=== PATIENT | male | born 1935 | race Caucasian/White ===

== ENCOUNTER → 2018-07-01 16:03 | Outpatient (CLI) | payer MEDICARE, SELFPAY ==
--- NOTE | 2018-07-01 | IMM_PTH ---
PATIENT: HAIM CRABTREE LOC: [facility] U#:[id number] AGE/SX: 89/M ROOM: RE07/01/[address]: Dr. Bassam Goldman MD : 1935 BED: DIS: SPEC #: [id number] RECD: 07/03/18 11:48 STATUS: FARIHA REQ #: [id number] CHARLIE: 07/01/18 00:[address]: Bassam Goldman DEPT: IMMUNOHISTOCHEMISTRY RECD BY: Sunita Buckner Tissues: Neck, NOS Procedures: NAPSIN A (add) CK14 (add) CK20 (add) CK5-6 (add) CK7 (add) CK8 (add) EGE (add) KI-67 (add) P53 (add) TTF1 (add) Vimentin (add) Pankeratin (initial) P40 (add) PSAP (add) S-100 (add) PHYSICIAN & INSTITUTION [place] [id number] SPECIMEN INFORMATION: Tissue Source: Left neck mass Clinical Info: Left parotid mass Specimen Number: [id number] CPT code: 55536, 99369 x14 METHODOLOGY: Deparaffinized sections of prefer/formalin-fixed tissue or PAP/DQ stained slides are incubated with monoclonal/polyclonal antibodies/oligonucleotide probes. Localization is made via biotin free immunoperoxidase method. Appropriate controls are performed and reacted as expected. Results on target cell population are indicated in the following table: RESULTS: ANTIBODY / CLONE RESULT AE1-3 (AE1/AE3/PCK26) positive, focal CK7 (OV-TL12/30) negative CK8 (90tpvzL35) negative CK20 (KS20.8) negative P40 (BC28) positive Vimentin (V9) negative S-100 (4C4.9) negative TTF-1 (8G7G3/1) negative Napsin A (Rabbit Polyclonal) negative PSAP (PASE/4LJ) negative CK5-6 (D5 & 1684) positive CK14 (LL002) positive Ki-67 (30-9) negative GEE (E29) positive P53 (DO-7) negative These tests were developed and their performance characteristics determined by [facility]. They may not have been cleared or approved by the U.S. Food and Drug Administration. The FDA has determined that such clearance or approval is not necessary. INTERPRETATION: Left neck mass, fine needle aspiration: Consistent with metastatic squamous cell carcinoma. AM:stephany 07/04/18 Case has been reviewed in consultation with Dr. Magana who concurs with the above diagnosis. IDC:SJ
--- NOTE | 2018-07-01 14:17 | FLU_PTH ---
PATIENT: HAIM CRABTREE LOC: [facility] U#:[id number] AGE/SX: 89/M ROOM: RE07/01/[address]: Dr. Bassam Goldman MD : 1935 BED: DIS: SPEC #: [id number] RECD: 07/01/18 15:32 STATUS: FARIHA YEFRI #: [id number] CHARLIE: 07/01/18 14:[address]: Bassam Goldman DEPT: CYTOLOGY RECD BY: Luis Menchaca Tissues: Parotid gland, NOS Procedures: Special Stain Group II Surgery Specimen Level IV Cytospin Fluid HEADER OPERATION: Not noted PRE-OP DIAGNOSIS: Left parotid mass TISSUE SUBMITTED: Left side of neck, fluid for cytology DIAGNOSIS CYTOLOGY Left neck mass, fine needle aspiration (cytospin and cell block): Scant degenerating atypical squamous cells consistent with metastatic squamous cell carcinoma. Abundant acute inflammatory cells. AM:stephany 07/03/18 COMMENT Immunohistochemistry ([id number]) supports the above diagnosis. Clinical correlation is suggested. Case has been reviewed in consultation with Dr. Magana who concurs with the above diagnosis. IDC:SJ CYTOLOGY STUDY Slides are reviewed. CYTOLOGY GROSS Received is 40 ml of red cloudy fluid labeled with the patient's name and and designated per the requisition as left side of neck/parotid mass. Submitted for cytology preparation including cell block. 07/02/18 TC:? CPT: 10994, 58780
== END ==
PROVIDERS: Referring Provider Otolaryngology; Visit Provider Otolaryngology
DX: R22.1 Localized swelling, mass and lump, neck (principal)
CPT/HCPCS: 88108; 88305; 88313; 88341; 88342

== ENCOUNTER 2018-07-12 07:29 | Observation (INO) | payer MEDICARE, SELFPAY ==
[2018-07-12] VITALS (11 sets, daily range): BP systolic 120–163; BP diastolic 55–73; PULSE 60–65; RESP 14–16; TEMP 36.4–37.4; O2SAT 92–98; BMI 23.1
--- NOTE | 2018-07-12 | LES_PTH ---
PATIENT: HAIM CRABTREE LOC: [facility] U#:[id number] AGE/SX: 82/M ROOM: [facility] RE07/12/[address]: Dr. Bassam Goldman MD : 1935 BED: 1 DIS: 07/13/2018 SPEC #: [id number] RECD: 07/12/18 12:34 STATUS: FARIHA YEFRI #: [id number] CHARLIE: 07/12/18 00:[address]: Bassam Goldman DEPT: SURGICAL PATHOLOGY RECD BY: Sunita Buckner ENTERED: 07/12/18 13:24 SP TYPE: Lesion OTHR DR: Out of Town Doctor Tissues: A - Skin of external ear, NOS B - Parotid gland, NOS C - Parotid gland, NOS D - Neck, NOS Procedures: Frozen Section (charge) Frozen Section Add'l ([facility]) Surgery Specimen Level IV Surgery Specimen Level V HEADER OPERATION: Parotidectomy PRE-OP DIAGNOSIS: Malignant neoplasm of parotid gland TISSUE SUBMITTED: A - Lesion left ear, sent for frozen at 1234, B - Left parotid gland sent for frozen at 1422, long suture - superior, skin patch - lateral, C - Deep lobe left parotid gland sent for permanent, D - Cervical tissue sent for permanent FROZEN SECTION DIAGNOSIS A. Left ear lesion, biopsy: Basal cell carcinoma, completely excised. B. 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 Margins are very close to tumor. DEBBIE:stephany 07/12/18 MICROSCOPIC DIAGNOSIS A. Left ear lesion, excisional biopsy: Basal cell carcinoma, completely excised (0.9 cm in greatest dimension). See comment. B. Left parotid gland, parotidectomy: Consistent with metastatic poorly differentiated squamous cell carcinoma, completely excised (8?cm in greatest dimension). Extensive perineural invasion is noted. Four of four lymph nodes, negative for metastatic carcinoma. Major salivary gland tissue with focal chronic inflammation. Skin with focal actinic keratosis with mild to moderate atypia, hyperkeratosis and parakeratosis. See comment. C. Deep lobe left parotid gland, parotidectomy: Major salivary gland tissue, no pathologic diagnosis. Two out of two lymph nodes negative for metastatic carcinoma. D. Cervical tissue: Three out of three lymph nodes negative for metastatic carcinoma. DEBBIE:stephany 07/16/18 COMMENT A. The specimen also contains cartilage which is free of carcinoma. B. Most of the metastatic tumor is present in soft tissue adjacent to the major salivary gland tissue. The tumor has multinodular appearance and focally is suspicious for a lymph node that is replaced by tumor.. Few minute foci of the tumor are noted in the salivary gland tissue consistent with focal invasion of the adjacent salivary gland. Tumor involves skeletal muscle tissue and contains extensive necrosis. The tumor is 0.1 cm away from the closest (posterior) margin and 0.2 cm away from the next closest (lateral) margin of excision. Immunohistochemistry ([id number]) supports the above diagnosis. Reference is made to a previous specimen ([id number]) left neck mass, fine needle aspiration with diagnosis of scant degenerating atypical squamous cell consistent with metastatic squamous cell carcinoma. The patient has previous history of squamous cell carcinoma involving denominational region is noted. This case is discussed with Dr. Goldman on 07/16/18. Case has been reviewed in consultation with Dr. Magana who concurs with the above diagnosis. IDC:SJ MICROSCOPIC DESCRIPTION Slides are reviewed. GROSS DESCRIPTION A - Received fresh for frozen section diagnosis labeled with the patient's name is a specimen designated lesion left ear. The specimen consists of a wedge-shaped piece of al-white skin measuring 2 x 1.2 x 0.7 cm. The specimen is inked, serially sectioned and submitted entirely for frozen section diagnosis in three cassettes. Cassette 1 contains the enfaced peripheral margins. / DEBBIE:stephany 07/12/18 B - Received fresh for frozen section diagnosis labeled with the patient's name is a specimen designated left parotid gland. The specimen consists of an irregular piece of glandular tissue weighing 65 gm and measuring 9 x 5 x 4 cm. A piece of skin is noted measuring 5.5 x 1.5 cm. The specimen is oriented as follows: long stitch - superior and skin patch - lateral. The specimen is inked as follows: anterior - yellow, posterior - black, superior - blue, inferior - green, medial - red and lateral - orange. Serial sections reveal a tumor mass occupying almost the entire specimen measuring 8 x 5 x 4 cm. A smaller nodule is also noted at the inferior edge of the specimen measuring 1 cm in greatest dimension. Two frozen sections are done, one from the larger tumor, a second from the smaller nodule. Grossly, the tumor appears to be close to all margins of the specimen; however, it does not appear to be transected. Radio Officer sections are submitted in 17 cassettes as follows: 1 - frozen section, smaller nodule close to inferior margin of the specimen, 2 - tumor with closest margin, 3-12 - cash applications representative sections from superior to inferior margins (cassette 3 contains the most superior margin), 15-17 - contain the most inferior end of the specimen. Many of the tumor sections also contain the closest margin. / SJ: 07/15/18 C - Received in fixative is one container labeled with the patient's name and designated Deep lobe left parotid gland. The specimen consists of an irregular piece of glandular tissue weighing 3.8 gm and measuring 4 x 2.5 x 1 cm. Sections do not reveal any mass lesion. The entire specimen is submitted in three cassettes. / SJ: 07/15/18 D - Received in fixative is one container labeled with the patient's name and designated cervical tissue. The specimen consists of two pieces of yellow adipose tissue with the larger piece containing a possible nodule consistent with possible lymph node measuring 1 x 0.5 x 0.4 cm and 1 x 0.2 x 0.2 cm. The entire specimen is submitted in one cassette. / SJ: 07/15/18 TC:0 CPT: 67895 x2, 38520 x2, 00143 x2, 77598 x3
--- NOTE | 2018-07-12 | IMM_PTH ---
PATIENT: HAIM CRABTREE LOC: [facility] U#:[id number] AGE/SX: 82/M ROOM: [facility] RE07/12/[address]: Dr. Bassam Goldman MD : 1935 BED: 1 DIS: 07/13/2018 SPEC #: [id number] RECD: 07/16/18 11:45 STATUS: SOUT REQ #: [id number] CHARLIE: 07/12/18 00:[address]: Bassam Goldman DEPT: IMMUNOHISTOCHEMISTRY RECD BY: Sunita Buckner ENTERED: 07/16/18 11:46 SP TYPE: IMMUNO OTHR DR: Dr. Mathew Freedman MD [facility] Doctor Tissues: B - Parotid gland, NOS Procedures: CK20 (add) CK5-6 (add) CK7 (add) CK8 (add) P16 (add) P40 (add) CK7 (initial) PHYSICIAN & INSTITUTION [place] [id number] SPECIMEN INFORMATION: Tissue Source: B - Left parotid gland Clinical Info: Malignant neoplasm of parotid gland Specimen Number: [id number] B9 & B14 [facility] code: 79836, 51242 x11 METHODOLOGY: Deparaffinized sections of prefer/formalin-fixed tissue or PAP/DQ stained slides are incubated with monoclonal/polyclonal antibodies/oligonucleotide probes. Localization is made via biotin free immunoperoxidase method. Appropriate controls are performed and reacted as expected. Results on target cell population are indicated in the following table: RESULTS: ANTIBODY / CLONE RESULT Block B9 CK7 (OV-TL12/30) negative CK8 (69ogxoR44) negative CK20 (KS20.8) negative CK5-6 (D5 & 1684) positive P16 (E6H4) negative P40 (BC28) positive Block B14 CK7 (OV-TL12/30) negative CK8 (66qkfdO91) negative CK20 (KS20.8) negative CK5-6 (D5 & 1684) positive P16 (E6H4) negative P40 (BC28) positive These tests were developed and their performance characteristics determined by [facility]. They may not have been cleared or approved by the U.S. Food and Drug Administration. The FDA has determined that such clearance or approval is not necessary. INTERPRETATION: B. 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 AM:stephany 07/17/18
--- NOTE | 2018-07-12 07:43 | EKG12_ITS ---
Test Reason : POST OP Blood Pressure : / mmHG Vent. Rate : 064 BPM Atrial Rate : 064 BPM P-R Int : 154 ms QRS Dur : 156 ms QT Int : 474 ms P-R-T Axes : 099 -89 100 degrees QTc Int : 489 ms Atrial-sensed ventricular-paced rhythm Biventricular pacemaker detected Abnormal ECG When compared with ECG of 12-JUL-2018 07:50, MANUAL COMPARISON REQUIRED, DATA IS UNCONFIRMED Confirmed by SARA MARTIN, JESSICA ([id number]), social media editor NALINI ABARCA ([id number]) on 07/16/2018 1:48:07 PM Referred By: Bassam Goldman Confirmed By:JESSICA RUIZ MD
[2018-07-12 08:16] LABS: Hematocrit 36.4 % (40-54); Hemoglobin 11.7 g/dl (13.0-16.5); Mean Corp Hgb Conc 32.1 g/gl (32-36); Mean Corpuscular Hgb 29.5 pg (27.0-32.0); Mean Corpuscular Volume 91.9 fL (80-94); Mean Platelet Vol. 9.3 fl (6.2-12.0); Platelet Count 265 K/mm3 (150-450); RBC Distribution Width CV 15.9 % (11.6-14.6); RBC Distribution Width SD 52.7 fl (35.1-43.9); Red Blood Count 3.96 M/mm3 (4.6-6.2); White Blood Count 11.6 K/mm3 (4.4-11.0)
[2018-07-12 08:20] LABS: Scan Indicated on CBC? Y/N NO
[2018-07-12 08:25] LABS: Anion Gap 8 (5-15); BUN 35 mg/dL (7-18); BUN/Creat Ratio 15.8 RATIO (10-20); Calcium,Total 9.7 mg/dL (8.5-10.1); Chloride 107 mmol/L (98-107); Creatinine, Serum 2.21 mg/dL (0.70-1.30); EST Glomerular Filtration Rate 30 mL/min (>60); Est Glom Filt Rate - Afr Amer 37 mL/min (>60); Glucose 120 mg/dL (74-106); Potassium 4.6 mmol/L (3.5-5.1); Sodium Level 137 mmol/L (136-145)
[2018-07-12] MEDS: Bacitracin 500 UNITS/GM PACKET (13:31)
--- NOTE | 2018-07-12 16:26 | PCM.OPRPT ---
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 He had a history of squamous cell carcinoma of the alevism that was excised previously and needle aspiration biopsy was suggestive of a metastatic squamous cell carcinoma within the parotid gland although a primary squamous cell of the parotid gland could not be excluded. CT scan confirmed a large mass within the parotid gland and surgical excision for debulking potential cure with the potential need for postoperative radiation therapy was discussed at length and he was agreeable to proceed. Additionally he was noted to have a nonhealing ulcerated lesion of the left helical rim of the auricle and this was additionally advised for excision as it was suspicious for a skin malignancy as well. Cardiac clearance through his garage door hanger was obtained as he had a significant cardiac history but it was felt that he was appropriate to proceed giving the high risk of his malignant tumor. The risks, alternatives, potential benefits, and complications were discussed at length and any questions answered to the patient and/or caregiver's satisfaction. Witnessed informed consent was obtained in the office, and the patient and/or caregiver was agreeable to proceed. Procedure went as follows: The patient was identified in the preoperative holding and left ear site marked as well as the left neck in accordance with the patient's exam chart notes and history. The patient was then placed under general anesthesia and intubated. When appropriate anesthesia obtained, the facial nerve monitoring electrodes were then placed in accordance with bench mechanic's directions. These were confirmed to be operational prior to proceeding. The left ear was then prepped and draped in usual sterile fashion. Using 1% lidocaine of 100,000 epinephrine the area around the ulcerated lesion of the helical rim of the left ear was then injected for a total of 4 cc. Using a 15 blade scalpel the area was then incised 2.5 x 2 cm in size including removal of the underlying cartilage. This was then sent for pathologic evaluation which revealed a basal cell carcinoma that was completely excised. The ear cartilage was then transected in a wedge which allowed a rotational closure and reconstruction of the helical rim which resulted in a reduction in overall size of the ear but denominational of the normal contours of the auricle. This was then closed deeply with interrupted 3-0 Vicryl sutures followed by interrupted 4-0 Prolene sutures to the skin. This completed this portion of the procedure. Attention was then turned to the left parotidectomy. There is noted to be a large firm mass within the body of the parotid gland approximately 4 x 3 cm in size which appeared to be fixed to portion of the overlying skin. The planned incision was then marked with a marking pen and injected with 1% lidocaine with 100,000 epinephrine for a total of 6 mL. The incision was then designed to include removal of the elliptical portion of the skin that appeared fixed over the large mass. After allowing for vasoconstriction, a standard parotidectomy incision was then made a 15 blade scalpel through the skin and subcutaneous tissues. The subcutaneous was then tissue was then dissected and the greater auricular nerve identified. This was noted to be involved within the tumor mass and was sacrificed. Dissection was then carried down along the sternocleidomastoid where portions of the anterior muscle were again involved with the tumor and a cuff of normal-appearing muscle was sacrificed with the mass. Dissection was then carried out along the tragal cartilage and the main trunk of the facial nerve identified. Dissection was then carried out along the facial nerve branches working inferiorly to superiorly and freeing the mass from parotid bed. Inferiorly the soft tissue and lymph nodes along the jugular vein and carotid were removed and sent along with the specimen as part of the neck dissection contents and this was then sent for surgical specimen. The facial nerve which was free from fixation to the tumor was then dissected free of the deep lobe of the parotid which was additionally excised and sent as separate specimen. Several small nodes from the lower cervical chain and level 4 were additionally harvested and sent as separate specimen. Operative stimulation of the facial nerve branches confirmed preservation of function. The wound bed was then copiously irrigated with saline solution and a #7 flat CASPER drain placed and brought out through separate stab incision in the skin. The wound was then closed deeply with interrupted 3-0 Vicryl sutures followed by running 5-0 Monocryl to the skin. Bacitracin and ointment was then applied and the patient returned to anesthesia where he was revived and extubated without complication having tolerated the procedure well. Type of Anesthesia:: General Anesthesiologist: Jasper Mart Special Medications: none Specimen's removed: Left BCCA ear, left parotid mass and lympoh nodes Drains: #7 flat CASPER Estimated Blood Loss (mL): 150 mL Fluids Replaced: 900 mL Grafts/Implants Used: none - Complications none - Admit VTE Documentation VTE Present on Admission: No VTE Mechan Device Prophylaxis: SCD's VTE Pharm Prophylaxis ordered?: No
--- NOTE | 2018-07-12 16:31 | OP.PCM_ITS ---
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 He had a history of squamous cell carcinoma of the restoration that was excised previously and needle aspiration biopsy was suggestive of a metastatic squamous cell carcinoma within the parotid gland although a primary squamous cell of the parotid gland could not be excluded. CT scan confirmed a large mass within the parotid gland and surgical excision for debulking potential cure with the potential need for postoperative radiation therapy was discussed at length and he was agreeable to proceed. Additionally he was noted to have a nonhealing ulcerated lesion of the left helical rim of the auricle and this was additionally advised for excision as it was suspicious for a skin malignancy as well. Cardiac clearance through his memorial mason was obtained as he had a significant cardiac history but it was felt that he was appropriate to proceed giving the high risk of his malignant tumor. The risks, alternatives, potential benefits, and complications were discussed at length and any questions answered to the patient and/or caregiver's satisfaction. Witnessed informed consent was obtained in the office, and the patient and/or caregiver was agreeable to proceed. Procedure went as follows: The patient was identified in the preoperative hold ing and left ear site marked as well as the left neck in accordance with the patient's exam chart notes and history. The patient was then placed under general anesthesia and intubated. When appropriate anesthesia obtained, the facial nerve monitoring electrodes were then placed in accordance with resource room special education teacher's directions. These were confirmed to be operational prior to proceeding. The left ear was then prepped and draped in usual sterile fashion. Using 1% lidocaine of 100,000 epinephrine the area around the ulcerated lesion of the helical rim of the left ear was then injected for a total of 4 cc. Using a 15 blade scalpel the area was then incised 2.5 x 2 cm in size including removal of the underlying cartilage. This was then sent for pathologic evaluation which revealed a basal cell carcinoma that was completely excised. The ear cartilage was then transected in a wedge which allowed a rotational closure and reconstruction of the helical rim which resulted in a reduction in overall size of the ear but pentecostal of the normal contours of the auricle. This was then closed deeply with interrupted 3-0 Vicryl sutures followed by interrupted 4-0 Prolene sutures to the skin. This completed this portion of the procedure. Attention was then turned to the left parotidectomy. There is noted to be a large firm mass within the body of the parotid gland approximately 4 x 3 cm in size which appeared to be fixed to portion of the overlying skin. The planned incision was then marked with a marking pen and injected with 1% lidocaine with 100,000 epinephrine for a total of 6 mL. The incision was then designed to include removal of the elliptical portion of the skin that appeared fixed over the large mass. After allowing for vasoconstriction, a standard parotidectomy incision was then made a 15 blade scalpel through the skin and subcutaneous tissues. The subcutaneous was then tissue was then dissected and the greater auricular nerve identified. This was noted to be involved within the tumor mass and was sacrificed. Dissection was then carried down along the sternocleidomastoid where portions of the anterior muscle were again involved with the tumor and a cuff of normal-appearing muscle was sacrificed with the mass. Dissection was then carried out along the tragal cartilage and the main trunk of the facial nerve identified. Dissection was then carried out along the facial nerve branches working inferiorly to superiorly and freeing the mass from parotid bed. Inferiorly the soft tissue and lymph nodes along the jugular vein and carotid were removed and sent along with the specimen as part of the neck dissection contents and this was then sent for surgical specimen. The facial nerve which was free from fixation to the tumor was then dissected free of the deep lobe of the parotid which was additionally excised and sent as separate specimen. Several small nodes from the lower cervical chain and level 4 were additionally harvested and sent as separate specimen. Operative stimulation of the facial nerve branches confirmed preservation of function. The wound bed was then copiously irrigated with saline solution and a #7 flat CASPER drain placed and brought out through separate stab incision in the skin. The wound was then closed deeply with interrupted 3-0 Vicryl sutures followed by running 5-0 Monocryl to the skin. Bacitracin and ointment was then applied and the patient returned to anesthesia where he was revived and extubated without complication having tolerated the procedure well. Type of Anesthesia:: General Anesthesiologist: Jasper Mart Special Medications: none Specimen's removed: Left BCCA ear, left parotid mass and lympoh nodes Drains: #7 flat CASPER Estimated Blood Loss (mL): 150 mL Fluids Replaced: 900 mL Grafts/Implants Used: none - Complications none - Admit VTE Documentation VTE Present on Admission: No VTE Mechan Device Prophylaxis: SCD's VTE Pharm Prophylaxis ordered?: No
--- NOTE | 2018-07-12 16:47 | EKG12_ITS ---
Test Reason : PRE OP Blood Pressure : / mmHG Vent. Rate : 067 BPM Atrial Rate : 067 BPM P-R Int : 174 ms QRS Dur : 162 ms QT Int : 444 ms P-R-T Axes : 108 -88 099 degrees QTc Int : 469 ms AV dual-paced rhythm with occasional Premature ventricular complexes Biventricular pacemaker detected Abnormal ECG No previous ECGs available Confirmed by SARA MARTIN, JESSICA ([id number]), general expeditor NALINI ABARCA ([id number] on 07/16/2018 1:48:16 PM Referred By: Bassam Goldman Confirmed By:JESSICA RUIZ MD
--- NOTE | 2018-07-12 17:43 | PCM.CONS.C ---
Reason for Consult Date of Consultation: 07/12/18 History of Present Illness: The patient is a 82 year old M with a past medical history significant for ischemic cardiomyopathy status post left circumflex artery angioplasty, status post ICD for an ejection fraction of 25%. Patient is also status post coronary bypass surgery. 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 He had been seen by Dr. Glenroy Gutierrez at [facility] and was cleared for surgery. He was told that postoperatively he should be seen by a video clerk. There were no untoward events during the surgery. He has had no previous chest pain or shortness of breath or paroxysmal nocturnal dyspnea or pedal edema. He has been compliant with all his medications his defibrillator has been followed by the [employer] sales representative. [] Past Medical History Allergies/Adverse Reactions: Allergies No Known Allergies Allergy (Verified 07/12/18 08:11) Home Medications: Ambulatory Orders Medication Instructions Recorded Aspirin [Aspir 81] 81 mg PO QHS 07/11/18 Calcitriol 0.25 mcg PO QHS 07/11/18 Carvedilol [Coreg] 6.25 mg PO DAILY 07/11/18 Cholecalciferol (VIT D3) [Vitamin 1,000 unit PO QHS 07/11/18 D] Clopidogrel Bisulfate [Plavix] 75 mg PO QHS 07/11/18 Fish Oil/Dha/Epa [Fish Oil 1,200 1 each PO BID 07/11/18 mg Fish Oil] Furosemide [Lasix] 20 mg PO DAILY 07/11/18 Isosorbide Mononitrate [Imdur] 30 mg PO DAILY 07/11/18 Ranitidine HCl [Acid Recruitment Officer] 150 mg PO BID 07/11/18 Simvastatin [Zocor] 10 mg PO QHS 07/11/18 Spironolactone [Aldactone] 25 mg PO DAILY 07/11/18 Vit C/E/Zn/Coppr/Lutein/Zeaxan 1 each PO BID 07/11/18 [Preservision Areds 2 Softgel] Surgical History: coronary bypass surgery Smoking Status: Former smoker Tobacco Use: Non-smoker Alcohol: None Drugs: None Review of Systems - Review of Systems General: Denies: Fever, Night Sweats, Fatigue HEENT: Denies: Vision Change Cardiovascular: Denies: Chest Discomfort, Shortness of Breath, Orthopnea, PND, Peripheral Edema, Palpitations, Lightheadedness, Dizziness, Near Syncope, Syncope Respiratory: Denies: Cough, Sputum Production, Hemoptysis Gastrointestinal: Denies: Hematemesis, Hematochezia, Melena Genitourinary: Denies: Dysuria, Hematuria Skin: Denies: Rash Neurological: Denies: Dizziness Psychiatric: Denies: Anxiety Endocrine: Denies: Unexplained Weight Loss Hematologic/ Lymphatic: Denies: Anemia Subjectve: Pleasant an gentleman in no apparent distress being seen postop. Objective: Vital Signs Temp Pulse Resp BP Pulse Ox 97.5 F L 60 16 157/57 H 97 07/12/18 16:36 07/12/18 17:15 07/12/18 17:15 07/12/18 17:15 07/12/18 17:15 Oxygen Delivery Method Room Air Weight: 152 lb 8.958 oz Body Mass Index (BMI) 23.1 Intake and Output for Last 24 Hours 07/10/18 07/11/18 07/12/18 23:59 23:59 23:59 Intake Total 1000 / 1000 Output Total 0 / 0 Balance 1000 / 1000 General: Awake, Alert, Oriented x 3, Ill Appearing HEENT: PERRL, EOMI, Sclera Non Icteric Neck: Supple, Good ROM, No Lymph Node Enlargement, - - Extensive surgical resection left side of the neck Lungs: Clear to auscultation Cardiovascular: Regular Rhythm, Normal S1, Normal S2, No Murmurs, No Rubs, No Gallops Vascular: No Carotid Bruits, Normal Femoral Pulses, Normal Radial Pulses, Normal Dorsalis Pedal Pulse, Normal Posterior Tibial Pulses Abdomen: Bowel Sounds Present, Soft, Non Tender, No HSM, No Organomegaly Extremities: No Cyanosis, No Clubbing, No edema Musculoskeletal: No Erythema Skin: No Rashes Lymphatic: No Lymph Node Enlargement Neurological: No Focal Motor or Sensory Deficit Psych/Mental Status: Appropriate 07/12/18 08:00: WBC 11.6 H, RBC 3.96 L, Hgb 11.7 L, Hct 36.4 L, MCV 91.9, MCH 29.5, MCHC 32.1, RDW 15.9 H, RDW Differential 52.7 H, Plt Count 265, MPV 9.3 07/12/18 08:00: Sodium 137, Potassium 4.6, Chloride 107, Carbon Dioxide 22.0, Anion Gap 8, BUN 35 H, Creatinine 2.21 H, Est GFR (MDRD) Af Amer 37 L, Est GFR (MDRD) Non-Af 30 L, BUN/Creatinine Ratio 15.8, Glucose 120 H, Calcium 9.7 Rhythm: EKG: AV sequential pacing ECHO: Estimated ejection fraction 25% on previous records Assessment/Plan 1. Postop cardiac evaluation Patient is status post parotid gland resection and appears to be doing well. There were no EKG changes and patient appears to be hemodynamically stable. I would recommend that the patient be transferred to the telemetry unit and have cardiac enzymes tonight as well as in the morning. He will be reassessed then and further recommendations made. Would recommend resuming oral medications including beta-aj and isosorbide 2. Ischemic cardiomyopathy And appears to be stable with no evidence of heart failure at this time We will continue to follow. 3. Status post ICD implantation Patient is status post ICD implantation and appears to be interrogated postop. He continues to do well and EKG demonstrates AV sequential pacing. Thank you for allowing me to participate in the care of your patient. Please don't hesitate to call if any issues arise
--- NOTE | 2018-07-12 17:48 | CON.PCM_ITS ---
Reason for Consult Date of Consultation: 07/12/18 History of Present Illness: The patient is a 82 year old M with a past medical history significant for ischemic cardiomyopathy status post left circumflex artery angioplasty, status post ICD for an ejection fraction of 25%. Patient is also status post coronary bypass surgery. 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 He had been seen by Dr. Glenroy Gutierrez at [facility] and was cleared for surgery. He was told that postoperatively he should be seen by a stick feeder. There were no untoward events during the surgery. He has had no previous chest pain or shortness of breath or paroxysmal nocturnal dyspnea or pedal edema. He has been compliant with all his medications his defibrillator has been followed by the [employer] retail service representative. [] Past Medical History Allergies/Adverse Reactions: Allergies No Known Allergies Allergy (Verified 07/12/18 08:11) Home Medications: Ambulatory Orders Medication Instructions Recorded Aspirin [Aspir 81] 81 mg PO QHS 07/11/18 Calcitriol 0.25 mcg PO QHS 07/11/18 Carvedilol [Coreg] 6.25 mg PO DAILY 07/11/18 Cholecalciferol (VIT D3) [Vitamin 1,000 unit PO QHS 07/11/18 D] Clopidogrel Bisulfate [Plavix] 75 mg PO QHS 07/11/18 Fish Oil/Dha/Epa [Fish Oil 1,200 1 each PO BID 07/11/18 mg Fish Oil] Furosemide [Lasix] 20 mg PO DAILY 07/11/18 Isosorbide Mononitrate [Imdur] 30 mg PO DAILY 07/11/18 Ranitidine HCl [Acid Candy Dipper] 150 mg PO BID 07/11/18 Simvastatin [Zocor] 10 mg PO QHS 07/11/18 Spironolactone [Aldactone] 25 mg PO DAILY 07/11/18 Vit C/E/Zn/Coppr/Lutein/Zeaxan 1 each PO BID 07/11/18 [Preservision Areds 2 Softgel] Surgical History: coronary bypass surgery Smoking Status: Former smoker Tobacco Use: Non-smoker Alcohol: None Drugs: None Review of Systems - Review of Systems General: Denies: Fever, Night Sweats, Fatigue HEENT: Denies: Vision Change Cardiovascular: Denies: Chest Discomfort, Shortness of Breath, Orthopnea, PND, Peripheral Edema, Palpitations, Lightheadedness, Dizziness, Near Syncope, Syncope Respiratory: Denies: Cough, Sputum Production, Hemoptysis Gastrointestinal: Denies: Hematemesis, Hematochezia, Melena Genitourinary: Denies: Dysuria, Hematuria Skin: Denies: Rash Neurological: Denies: Dizziness Psychiatric: Denies: Anxiety Endocrine: Denies: Unexplained Weight Loss Hematologic/ Lymphatic: Denies: Anemia Subjectve: Pleasant an gentleman in no apparent distress being seen postop. Objective: Vital Signs Temp Pulse Resp BP Pulse Ox 97.5 F L 60 16 157/57 H 97 07/12/18 16:36 07/12/18 17:15 07/12/18 17:15 07/12/18 17:15 07/12/18 17:15 Oxygen Delivery Method Room Air Weight: 152 lb 8.958 oz Body Mass Index (BMI) 23.1 Intake and Output for Last 24 Hours 07/10/18 07/11/18 07/12/18 23:59 23:59 23:59 Intake Total 1000 / 1000 Output Total 0 / 0 Balance 1000 / 1000 General: Awake, Alert, Oriented x 3, Ill Appearing HEENT: PERRL, EOMI, Sclera Non Icteric Neck: Supple, Good ROM, No Lymph Node Enlargement, - - Extensive surgical resec tion left side of the neck Lungs: Clear to auscultation Cardiovascular: Regular Rhythm, Normal S1, Normal S2, No Murmurs, No Rubs, No Gallops Vascular: No Carotid Bruits, Normal Femoral Pulses, Normal Radial Pulses, Normal Dorsalis Pedal Pulse, Normal Posterior Tibial Pulses Abdomen: Bowel Sounds Present, Soft, Non Tender, No HSM, No Organomegaly Extremities: No Cyanosis, No Clubbing, No edema Musculoskeletal: No Erythema Skin: No Rashes Lymphatic: No Lymph Node Enlargement Neurological: No Focal Motor or Sensory Deficit Psych/Mental Status: Appropriate 07/12/18 08:00: WBC 11.6 H, RBC 3.96 L, Hgb 11.7 L, Hct 36.4 L, MCV 91.9, MCH 29.5, MCHC 32.1, RDW 15.9 H, RDW Differential 52.7 H, Plt Count 265, MPV 9.3 07/12/18 08:00: Sodium 137, Potassium 4.6, Chloride 107, Carbon Dioxide 22.0, Anion Gap 8, BUN 35 H, Creatinine 2.21 H, Est GFR (MDRD) Af Amer 37 L, Est GFR (MDRD) Non-Af 30 L, BUN/Creatinine Ratio 15.8, Glucose 120 H, Calcium 9.7 Rhythm: EKG: AV sequential pacing ECHO: Estimated ejection fraction 25% on previous records Assessment/Plan 1. Postop cardiac evaluation * Patient is status post parotid gland resection and appears to be doing well. There were no EKG changes and patient appears to be hemodynamically stable. I would recommend that the patient be transferred to the telemetry unit and have cardiac enzymes tonight as well as in the morning. He will be reassessed then and further recommendations made. * Would recommend resuming oral medications including beta-aj and isosorbide * 2. Ischemic cardiomyopathy * And appears to be stable with no evidence of heart failure at this time * We will continue to follow. * 3. Status post ICD implantation * Patient is status post ICD implantation and appears to be interrogated postop. He continues to do well and EKG demonstrates AV sequential pacing. * * Thank you for allowing me to participate in the care of your patient. Please don't hesitate to call if any issues arise
[2018-07-12] MEDS: Acetaminophen 325 MG Tablet 650 MG PO (18:39)
[2018-07-12] MEDS: Lactated Ringers 1,000 ML 120 ML IV (18:39)
[2018-07-12] MEDS: DiphenhydrAMINE 25 MG Capsule PO (21:50)
[2018-07-12] MEDS: Atorvastatin Calcium 10 MG Tablet 5 MG PO (21:51)
[2018-07-12] MEDS: Multivitamin (Healthy Eyes) Capsule 1 CAP PO (21:52)
[2018-07-12] MEDS: Calcitriol 0.25 MCG Capsule PO (21:52)
--- NOTE | 2018-07-13 00:05 | NURSING ---
The patient ambulated in the room and to and from the bathroom at this time with this RN and a GLASS DEPOSITION TENDER.
[2018-07-13 03:08] VITALS: PULSE 60
[2018-07-13 03:18] VITALS: BP 118/57; PULSE 60; RESP 16; TEMP 36.9; O2SAT 92
[2018-07-13] MEDS: Acetaminophen 325 MG Tablet 650 MG PO (03:22)
[2018-07-13 06:59] VITALS: PULSE 60
[2018-07-13] MEDS: Ibuprofen 400 MG Tablet PO (08:24)
[2018-07-13 08:26] VITALS: BP 120/55; PULSE 60; RESP 18; TEMP 37.1; O2SAT 93
[2018-07-13 08:27] VITALS: PULSE 60
--- NOTE | 2018-07-13 09:39 | PCM.PN.SRG ---
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 He denies difficulty with eye closure or irritation. He has had some drainage at the incision site at the ear. He denies fevers, chills, sweats, chest pain, shortness of breath, or difficulty swallowing. Objective: Patient is well-appearing and alert. His neck incision is intact. Minimal serosanguineous drain output has been noted overnight. There is some oozing at the excision site of his left ear likely secondary to his Plavix use. Facial movement is retained except for some very mild weakness of the left angle of the mouth however with challenge good movement is noted. - Physical Exam General: Alert, Oriented x3, Cooperative HEENT: Atraumatic, PERRLA, Normocephalic Oral: Moist Mucosa Neck: Supple, - - Incision is intact without fluid collections, redness, or swelling Lungs: Normal air movement Cardiovascular: Regular rate, Regular Rhythm Psych/Mental Status: Normal Affect, Alert and oriented to time, place, person, mood and affect Vital Signs Temp Pulse Resp BP Pulse Ox 98.7 F 60 18 120/55 L 93 07/13/18 08:26 07/13/18 08:27 07/13/18 08:26 07/13/18 08:26 07/13/18 08:26 Oxygen Delivery Method Room Air Weight: 69.2 kg Body Mass Index (BMI) 23.1 Intake and Output for Last 24 Hours 07/11/18 07/12/18 07/13/18 23:59 23:59 23:59 Intake Total 1000 / 1000 1206 / 1206 Output Total 0 / 0 620 / 620 Balance 1000 / 1000 586 / 586 Laboratory Tests Past 24 Hrs 07/12/18 07/12/18 07/12/18 17:00 20:10 22:36 Troponin I < 0.015 < 0.015 < 0.015 Medical Necessity - Tobacco Use Smoking Status: Former smoker Tobacco Use: Non-smoker Assessment/Plan All Active Problems 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 He has had minimal drain discharge overnight and the drain was removed at the bedside today. Given the oozing from his Plavix and a pressure dressing with Kerlix gauze is applied. At this time I feel is appropriate for discharge home as he has had a negative troponin levels and denies chest pain is had no EKG changes. I have asked that he return Sunday for changing of his pressure dressing into note of my fine me for signs of infection or excess drainage over the weekend. He reports that his pain is minimal and adequately controlled with Tylenol and I have asked that he continue with this in this regard. He may otherwise continue with his home medications. Cardiology input is noted and appreciated.
[2018-07-13] MEDS: Isosorbide Mononitrate 30 MG Tablet PO (10:44)
[2018-07-13] MEDS: Spironolactone 25 MG Tablet PO (10:44)
[2018-07-13] MEDS: Carvedilol 6.25 MG Tablet PO (10:44)
[2018-07-13] MEDS: Multivitamin (Healthy Eyes) Capsule 1 CAP PO (10:45)
[2018-07-13] MEDS: Furosemide 20 MG Tablet PO (10:45)
[2018-07-13] MEDS: Famotidine 20 MG Tablet PO (10:45)
[2018-07-13 10:49] VITALS: BP 120/58; PULSE 60; RESP 18; O2SAT 96
== END 2018-07-13 09:30 | disposition home or self-care (01) ==
LOC: ACINP 20:48 → PCU 20:49
PROVIDERS: Admitting Provider Otolaryngology; Referring Provider Otolaryngology; Visit Provider Otolaryngology
PROC: (CPT 42410; principal; 2018-07-12 11:05)
PROC: (CPT 11643; 2018-07-12 11:05)
DX: C07 Malignant neoplasm of parotid gland (principal); C44.219 Basal cell carcinoma of skin of left ear and external auricular canal; Z95.810 Presence of automatic (implantable) cardiac defibrillator; Z87.891 Personal history of nicotine dependence; Z79.899 Other long term (current) drug therapy; Z79.02 Long term (current) use of antithrombotics/antiplatelets; N18.3 Chronic kidney disease, stage 3 (moderate); K21.9 Gastro-esophageal reflux disease without esophagitis; I12.9 Hypertensive chronic kidney disease with stage 1 through stage 4 chronic kidney disease, or unspecified chronic kidney disease; I25.2 Old myocardial infarction
CPT/HCPCS: 11643; 13151; 42420; 36415; 80048; 84484; 85027; 88305; 88307; 88331; 88332; 88341; 88342; 93005; 96360; 96361; 99218; J7120; G0378; G0379; J2405; J3490